=== PATIENT | male | born 1965 | race Caucasian/White ===

== ENCOUNTER → 2017-01-17 | Outpatient (CLI) | payer OTHER ==
[2017-01-17 15:40] LABS: BASO % 0.5 %; BASO ABS # 0.05 K/uL (0-0.2); COMPLETE YES; HEMATOCRIT 42.3 % (42-52); IG% 0.3 %; LYMPH % 13.6 %; LYMPH ABS # 1.27 K/uL (1.2-3.4); MEAN CORPUSCULAR HEMOGLOBIN 30.7 pg (25-34); MEAN CORPUSCULAR HGB CONC 33.3 g/dl (32-36); MEAN PLATELET VOLUME 9.3 fL (7.4-10.4); MONO % 8.9 %; NEUT % 74.7 %; PLATELET COUNT 201 K/uL (130-400); WHITE BLOOD COUNT 9.31 K/uL (4.8-10.8)
[2017-01-17 15:45] LABS: MANUAL MICROSCOPIC REQUIRED? NO; REVIEW REQ? NO; URINE APPEARANCE CLEAR (CLEAR); URINE COLOR DK YELLOW; URINE EPITHELIAL CELL AUTO >30 /lpf (0-5); URINE NITRITE NEG (NEG); URINE SPECIFIC GRAVITY 1.029 (1.000-1.030); UROBILINOGEN NEG (NEG); ZZUR CULT IF INDIC CLEAN CATCH NO
[2017-01-17 15:47] LABS: SULFASALICYLIC ACID NEG (NEG); URINE BILIRUBIN NEG (NEG)
[2017-01-17 15:56] LABS: BLOOD UREA NITROGEN 14 mg/dl (7-18); BUN/CREATININE RATIO 9.2 (10-20); CALCIUM 8.8 mg/dl (8.5-10.1); CARBON DIOXIDE 33 mmol/L (21-32); CHLORIDE 98 mmol/L (98-107); GLUCOSE 93 mg/dl (70-99); MAGNESIUM 2.4 mg/dl (1.8-2.4); POTASSIUM 3.8 mmol/L (3.5-5.1); SODIUM 138 mmol/L (136-145)
[2017-01-17 16:07] LABS: ALKALINE PHOSPHATASE 92 U/L (45-117); ALT/SGPT 23 U/L (12-78); AST/SGOT 26 U/L (15-37); PHOSPHORUS 2.6 mg/dl (2.5-4.9)
[2017-01-17 16:17] LABS: URINE PROTIEN/CREAT RATIO 0.1 (0-0.2); URINE TOTAL PROTEIN 35.1 mg/dl (0-11.9)
[2017-01-19 16:29] LABS: ALBUMIN 3.6 G/DL (3.8-4.8); GAMMA GLOBULIN 1.2 G/DL (0.8-1.7); TOTAL PROTEIN 7.2 G/DL (6.2-8.3)
== END | disposition home or self-care (01) ==
LOC: C.LAB1850 14:28
PROVIDERS: ATTEND Internal Medicine Nephrology
DX: N28.9 Disorder of kidney and ureter, unspecified (principal); E55.9 Vitamin D deficiency, unspecified; G47.33 Obstructive sleep apnea (adult) (pediatric)

== ENCOUNTER → 2017-03-29 | Outpatient (CLI) | payer OTHER ==
[2017-03-29 17:30] LABS: BLOOD UREA NITROGEN 10 mg/dl (7-18); BUN/CREATININE RATIO 7.7 (10-20); CALCIUM 8.9 mg/dl (8.5-10.1); CARBON DIOXIDE 31 mmol/L (21-32); CHLORIDE 104 mmol/L (98-107); GLUCOSE 81 mg/dl (70-99); MAGNESIUM 2.2 mg/dl (1.8-2.4); PHOSPHORUS 2.1 mg/dl (2.5-4.9); SODIUM 140 mmol/L (136-145)
== END | disposition home or self-care (01) ==
LOC: C.LAB1850 15:15
PROVIDERS: ATTEND Internal Medicine Nephrology
DX: N28.9 Disorder of kidney and ureter, unspecified (principal)

== ENCOUNTER 2024-01-26 08:57 | Observation (INO) ==
--- NOTE | 2023-12-21 10:29 | PAT Medication Instructions ---
Medication Instructions Date of Service December 21, 2023 Home Medications Medication Instructions Recorded fluticasone propionate 110 1 puff inhalation BID #12 grams 04/06/21 mcg/actuation HFA aerosol inhaler (Flovent HFA) albuterol sulfate 90 mcg/actuation 2 puff inhalation Q6H PRN 10/07/21 aerosol inhaler shortness of breath or wheezing #8.5 grams montelukast 10 mg tablet 10 mg PO QPM #90 tabs 06/26/23 (Singulair) fluticasone propionate 110 mcg/actuation HFA aerosol inhaler (Flovent HFA) 1 puff inhalation BID albuterol sulfate 90 mcg/actuation aerosol inhaler 2 puff inhalation Q6H PRN shortness of breath or wheezing acetaminophen 650 mg tablet,extended release (Tylenol Arthritis Pain) 1,300 mg PO Q8H PRN Pain mecobalamin (vitamin B12) 500 mcg chewable tablet 500 mcg PO QAM montelukast 10 mg tablet (Singulair) 10 mg PO QPM allopurinol 100 mg tablet 200 mg PO QAM duloxetine 60 mg capsule,delayed release 60 mg PO QAM lisinopril 10 mg tablet 10 mg PO QAM omeprazole 20 mg capsule,delayed release 20 mg PO QPM prednisone 1 mg tablet 6 mg PO QAM tamsulosin 0.4 mg capsule 0.4 mg PO QAM DO NOT take the morning of surgery mecobalamin (vitamin B12) 500 mcg chewable tablet 500 mcg PO QAM lisinopril 10 mg tablet 10 mg PO QAM Take morning of surgery With a small sip of water, OTHERWISE NOTHING TO EAT OR DRINK AFTER MIDNIGHT: fluticasone propionate 110 mcg/actuation HFA aerosol inhaler (Flovent HFA) 1 puff inhalation BID albuterol sulfate 90 mcg/actuation aerosol inhaler 2 puff inhalation Q6H PRN shortness of breath or wheezing (use if needed; please bring rescue inhaler with you to hospital day of surgery if possible) acetaminophen 650 mg tablet,extended release (Tylenol Arthritis Pain) 1,300 mg PO Q8H PRN Pain (if needed) allopurinol 100 mg tablet 200 mg PO QAM duloxetine 60 mg capsule,delayed release 60 mg PO QAM prednisone 1 mg tablet 6 mg PO QAM tamsulosin 0.4 mg capsule 0.4 mg PO QAM Take evening before surgery fluticasone propionate 110 mcg/actuation HFA aerosol inhaler (Flovent HFA) 1 puff inhalation BID albuterol sulfate 90 mcg/actuation aerosol inhaler 2 puff inhalation Q6H PRN shortness of breath or wheezing (if needed) acetaminophen 650 mg tablet,extended release (Tylenol Arthritis Pain) 1,300 mg PO Q8H PRN Pain (if needed) montelukast 10 mg tablet (Singulair) 10 mg PO QPM omeprazole 20 mg capsule,delayed release 20 mg PO QPM Other Notes If you have any questions please call us at [phone] or [phone] or [phone] or [phone]
--- NOTE | 2024-01-09 13:07 | Anesthesiology Consultation ---
Date of Service January 09, 2024 Assessment & Plan (1) Encounter for pre-operative examination: Plan Addendum 01/06/24: Patient seen by cardiology 01/17/2024 = seen for preoperative cardiovascular examination. Patient with history of LVH and hypertension. "He underwent a cardiac catheterization a year ago that demonstrated normal coronary arteries. Echocardiogram performed last year showed low normal LVEF and no significant valvular pathology. He denies chest pain. He has chronic shortness of breath with exertion which appears stable. He has no evidence of CHF. He is therefore at an acceptable risk to proceed with upcoming surgery without any additional cardiovascular testing or intervention." Patient seen by PCP 01/11/24= patient seen for chronic medical follow up and preoperative encounter. LVHhas appointment with cardiology in near future for preop clearance. Hypertensionwell-controlled. Goutno recent flares. Apneic episodespatient declined sleep study. GERDcontinue omeprazole and avoid food triggers. PMRon chronic prednisone. Follow-up with rheumatology as needed. BPHdoing well. Asthmastable. Preop examinationrevised EKG was unremarkable. CXR showed no active disease. Labs reviewed and were unremarkable with exception to mild anemia. Will check iron studies and fit test to evaluate anemia. Will not hold up surgery at this time due to very mild anemia. "Based on patients past medical history, functional capacity 4 METs, and RCRI 0, patient is medically optimized for surgery from PCP standpoint. Has upcoming cardiology preoperative appt. Pt will not need any additional work up. " - SHERRELL DWYER 01/17/24 7629 Chart Review Chart Review: Acceptable Risk for Surgery (pending PCP (01/11/24) and cardio (01/17/24) clearance ) and Patient seen in Pre Admission Testing - Awaiting PCP clearance 01/11/24 ([place]) (stil in draft) - Patient scheduled with [facility] cardio for clearance appt 01/17/24 at 945am- patient aware of appt - Patient is NOT an OPJ candidate (currently 23 hour obs) Per PAT appt on 01/09/24, no recent illness/disease exposures, illness related symptoms, or recent illness/disease positive tests. Will leave to surgeon's discretion if preop Covid testing needed Consults Requested cardiac Teaching & Discussion Pre-Anesthesia Teaching/Discussion Notes: Instructed NPO after midnight before surgery,except medications with 15 cc of water. Medication instructions provided according to the PAT guidelines. History Surgery Operation Date: 01/26/24 07:00 Proposed Procedures p Left Total Knee Arthroplasty - Fritz iL MD Height/Weight Height: 5 ft 10 in Weight: 171.6 kg Allergies Allergy/AdvReac Type Severity Reaction Status Date / Time ibuprofen Allergy Mild Hives Verified 01/17/24 09:51 Medications Home Medications Medication Instructions Recorded Confirmed Last Taken fluticasone propionate 110 1 puff inhalation BID #12 grams 04/06/21 01/17/24 Unknown mcg/actuation HFA aerosol inhaler (Flovent HFA) albuterol sulfate 90 mcg/actuation 2 puff inhalation Q6H PRN 10/07/21 01/17/24 Unknown aerosol inhaler shortness of breath or wheezing #8.5 grams acetaminophen 650 mg 1,300 mg PO Q8H PRN Pain 12/27/22 01/17/24 Unknown tablet,extended release (Tylenol Arthritis Pain) mecobalamin (vitamin B12) 500 mcg 500 mcg PO QAM 12/27/22 01/17/24 Unknown chewable tablet montelukast 10 mg tablet 10 mg PO QPM #90 tabs 06/26/23 01/17/24 Unknown (Singulair) allopurinol 100 mg tablet 200 mg PO QAM 12/19/23 01/17/24 Unknown duloxetine 60 mg capsule,delayed 60 mg PO QAM 12/19/23 01/17/24 Unknown release lisinopril 10 mg tablet 10 mg PO QAM 12/19/23 01/17/24 Unknown omeprazole 20 mg capsule,delayed 20 mg PO QPM 12/19/23 01/17/24 Unknown release tamsulosin 0.4 mg capsule 0.4 mg PO QAM 12/19/23 01/17/24 Unknown prednisone 1 mg tablet 6 mg (6 x 1 mg) PO QAM #180 tabs 12/22/23 01/17/24 Unknown Wheeled Walker #1 ea 01/16/24 01/17/24 Unknown Past Medical History Medical History (Updated 01/17/24 @ 11:09 by Chelo Pierre PA-C) Arthritis Bilateral knees, daily pain/chronic steroid use Follows with Dr. Priest, Rheum Asthma stable and controlled BPH (benign prostatic hyperplasia) GERD (gastroesophageal reflux disease) well controlled and stable Hx of gout No flares for 6+ months Hypertension Left ventricular hypertrophy Stress echo 12/2022: Severe LVH PMR (polymyalgia rheumatica) On chronic prednisone; follows with rheum PRN Sleep apnea No device Exercise / Class Metabolic Activity III < 4 Walking/Shop/Light housework (no chest pain, mild SOB with short distance, flat surface ambulation - increased knee pain - rare cane use ) Past Family History Family History Mother Heart disease Past Surgical History Surgical History Hx of cardiac catheterization R/L cardiac cath: 01/2023 (Positive stress test)- Normal to low right heart cath measurements. (I lack confidence in the measurements obtained). Recommend patient have sleep study. No stents. "Normal coronary arteries" Hx of right inguinal hernia repair (1979) Hx of umbilical hernia repair (1997) Past Anesthesia History No Hx of Anesthesia Complications and No Family Hx of Anesthesia Complications History of PONV No Hx of PONV and No Hx of Motion Sickness Social History Smoking Status: Never smoker Do You Dip or Chew Tobacco: No Hx Alcohol Use: No Hx Substance Use: Yes substance use type: marijuana Last Used Substance Other:: Daily Marijuana use Review of Systems Patient denies chest pain, shortness of breath at rest, cough, wheezing, palpitations. No hx of seizures, stroke, AL. No hx of blood clots or blood transfusions Physical Exam Vital Signs VITALS BP 125/81 P 87 TEMP 98.3 SP02 95% RESP Constitutional no acute distress ENMT Mouth: no TMJ clicking Thyromental Distance: > or= 3.5 Finger Breadths (3.5) Mallampati Class: II Neck + short neck and + thick neck; neck extension not limited Respiratory normal respiratory effort; no respiratory distress Auscultation: lungs clear to auscultation bilaterally; no wheezes Cardiovascular Rate/Rhythm: regular rate and regular rhythm Heart Sounds: no murmur Vessels: no carotid bruit Musculoskeletal Spine: no pain with cervical ROM Extremities: extremities normal to inspection Psychiatric Orientation: alert Lab Results Anesthesia Preop Results Results Anesthesia Widget: WBC 9.50 K/ul (4.8-10.8) 01/09/24 Hgb 12.5 g/dl (14.0-18.0) L 01/09/24 Hct 39.3 % (42.0-52.0) L 01/09/24 Plt 195 K/uL (130-400) 01/09/24 Na 138 mmol/L (136-145) 01/09/24 K 3.8 mmol/L (3.5-5.1) 01/09/24 Cl 103 mmol/L (98-107) 01/09/24 CO2 30 mmol/L (21-32) 01/09/24 BUN 12 mg/dl (6-23) 01/09/24 Creat 1.56 mg/dl (0.6-1.4) H 01/09/24 Glucose Level 83 mg/dl (70-99(Fasting)) 01/09/24 PT 10.8 Seconds (9.0-12.0) 01/09/24 PTT 26 Seconds (21-31) 01/09/24 INR 1.0 (0.9-1.1) 01/09/24 HA1c 5.3 % (4.5-5.6) 01/09/24 Urine Color Yellow 01/11/24 Urine Appearance Clear (Clear) 01/11/24 Urine pH 6.5 (4.5-7.5) 01/11/24 Urine Specific [place] 1.017 (1.000-1.030) 01/11/24 Urine Protein Negative (Negative) 01/11/24 Urine Glucose (UA) Negative (Negative) 01/11/24 Urine Ketones Trace (Negative) H 01/11/24 Urine Blood Negative (Negative) 01/11/24 Urine Nitrite Negative (Negative) 01/11/24 Urine Bilirubin Negative (Negative) 01/11/24 Urine Urobilinogen Negative (Negative) 01/11/24 Urine Leukocyte Esterase Negative (Negative) 01/11/24 Blood Type O Positive 01/09/24 Antibody Screen NEGATIVE 01/09/24 Testing Laboratory Results Elevated creatine - chronic and stable since 2020 Electrocardiogram Date: 01/09/24 Findings: + NSR @ (84bpm ) Normal EKG per cardio Chest X-Ray Date: 01/09/24 Findings: + NAD Echocardiogram Date: 08/21/18 EF: 67% Other Findings: + LVH (Moderate/concentric) Valvular Disease: + no significant valvular disease LV cavity size is normal No left ventricular mural thrombus Stress Test Date: 12/06/22 Type: DSE Nondiagnostic stress echo Resting echo was poor quality but suggest low normal EF, severe LVH and no significant valvular pathology Stress echo images are inadequate for evaluation of segmental wall motion despite use of contrast for visualization of endocardium. Does appear to be general improvement in LV function with dobutamine infusion which would be considered an appropriate/normal response Dobutamine induced ST segment changes are nondiagnostic for ischemia Consider Lexiscan stress myocardial imaging to evaluate for ischemia as clinically indicated Cardiac Catheterization Date: 01/19/23 Coronary angiography findings: LMT: Large-caliber vessel bifurcating into LAD and circumflex. No angiographically evident disease. LAD: Large caliber and transapical. Provides a large branching diagonal. There is no angiographically evident disease in the LAD or its branches. LCx: Large caliber and probably nondominant. Provides a medium caliber OM 1 and a large caliber OM 2. It terminates distally and a large caliber posterior lateral branch. There is no angiographically evident disease in the circumflex or its branches. RCA: Large caliber vessel which is likely dominant. Provides a PDA. There is no angiographically evident disease in the RCA or its branches. LVEF: 55% Summary: 1. Normal coronary arteries. 2. Normal LVEF. 3. Normal to low right heart cath measurements. (I lack confidence in the measurements obtained). Recommend patient have sleep study.
--- NOTE | 2024-01-20 11:47 | History & Physical Report ---
Date of Service January 20, 2024 Assessment & Plan (1) Bilateral primary osteoarthritis of knee: 58-year-old male with morbid obesity with advanced bilateral knee DJD. He is got severe extensive disease. He has attempted weight loss with some degree of success. I still a large gentleman. He would like to proceed with surgical treatment. A very minimal response to further conservative care based on the severity of disease. Plan: We discussed treatment options with the patient today. He developed proceed with surgical intervention. We talked about the wrist with his increased size of operatively thrombosis, DVT, and infection. He is fully aware. He cannot mobilize and live life like he is doing currently. These will and and wants to take the risk to hopefully improve his mobility and his pain. We will likely put a stem in his tibia. Will put some antibiotics in the cement to make infection less likely. He is planning to be discharged to home using the [facility]. His sed rate and CRP are slightly elevated probably related to his PMR. There is no local signs of infection. Will plan on DVT prophylaxis including thigh-high teds, SCDs, aspirin twice a day. (2) Obesity: (3) PMR (polymyalgia rheumatica): History of Present Illness Chief Complaint: . Bilateral knee pain and discomfort left side greater than the right. Primary Care Provider: Nanda Manzo DO . Patient is a 58-year-old morbidly obese gentleman from [place] who presents for surgical management of his knees. He is got a 15-year history of increasing bilateral knee pain discomfort described to gotten worse over time. Does a history of a knee arthroscopy on the left side [address] Michelle. The pain is gradually gotten worse. His walking tolerance is only about 20 yards. He has difficulty even going to the bathroom. Bennett describes global pain. He limps. He has had injections which do not really help at all. He would like to proceed with surgical management. Of note, patient has attempted weight loss in the past on multiple occasions with the limited success. He does say that he previously weighed 450 pounds and is now down to about 375. Allergies Allergy/AdvReac Type Severity Reaction Status Date / Time ibuprofen Allergy Mild Hives Verified 01/17/24 09:51 Home Medications Medication Instructions Recorded Confirmed Type fluticasone propionate 110 1 puff inhalation BID #12 grams 04/06/21 01/17/24 Rx mcg/actuation HFA aerosol inhaler (Flovent HFA) albuterol sulfate 90 mcg/actuation 2 puff inhalation Q6H PRN 10/07/21 01/17/24 Rx aerosol inhaler shortness of breath or wheezing #8.5 grams acetaminophen 650 mg 1,300 mg PO Q8H PRN Pain 12/27/22 01/17/24 History tablet,extended release (Tylenol Arthritis Pain) mecobalamin (vitamin B12) 500 mcg 500 mcg PO QAM 12/27/22 01/17/24 History chewable tablet montelukast 10 mg tablet 10 mg PO QPM #90 tabs 06/26/23 01/17/24 Rx (Singulair) allopurinol 100 mg tablet 200 mg PO QAM 12/19/23 01/17/24 History duloxetine 60 mg capsule,delayed 60 mg PO QAM 12/19/23 01/17/24 History release lisinopril 10 mg tablet 10 mg PO QAM 12/19/23 01/17/24 History omeprazole 20 mg capsule,delayed 20 mg PO QPM 12/19/23 01/17/24 History release tamsulosin 0.4 mg capsule 0.4 mg PO QAM 12/19/23 01/17/24 History prednisone 1 mg tablet 6 mg (6 x 1 mg) PO QAM #180 tabs 12/22/23 01/17/24 Rx Wheeled Walker #1 ea 01/16/24 01/17/24 Rx Past Med/Surg History Problem List (Updated 01/20/24 @ 11:45 by Fritz Li MD) PMR (polymyalgia rheumatica) On chronic prednisone; follows with rheum PRN Obesity Bilateral primary osteoarthritis of knee Encounter for pre-operative examination Anxiety HTN (hypertension) Medical History Left ventricular hypertrophy Stress echo 12/2022: Severe LVH Sleep apnea No device PMR (polymyalgia rheumatica) On chronic prednisone; follows with rheum PRN BPH (benign prostatic hyperplasia) Asthma stable and controlled GERD (gastroesophageal reflux disease) well controlled and stable Hx of gout No flares for 6+ months Arthritis Bilateral knees, daily pain/chronic steroid use Follows with Dr. Priest, Rheum Hypertension Surgical History Hx of cardiac catheterization R/L cardiac cath: 01/2023 (Positive stress test)- Normal to low right heart cath measurements. (I lack confidence in the measurements obtained). Recommend patient have sleep study. No stents. "Normal coronary arteries" Hx of right inguinal hernia repair (1979) Hx of umbilical hernia repair (1997) Family History Mother Heart disease Social History Smoking Status: Never smoker Second Hand Exposure: No; Do You Dip or Chew Tobacco: No; Tobacco Cessation Education Requested by Patient: No Hx Alcohol Use: No Hx Substance Use: Yes Last Used Substance Other:: Daily Marijuana use Preferred Language: Portuguese Communication Ability: Effective Visual Impairment: No Limitations Hearing Ability: Normal Police Aide Required: No Beliefs That Will Affect Care: None marital status: Current Living Situation: Spouse current occupational status: unemployed How many Children do You have: 3 Other Information That Helps Us Care for You: No Feels Safe at Home: Yes Safety Concerns: Feels Safe At This Time Diet: regular caffeine: Yes Dental Care, Regularly: No Physical Activity Frequency: Does not Exercise Seatbelt Use: always Sunscreen Use: No Do you think of yourself as: don't know Sexual Activity: has been sexually active, but not for at least 12 months Gender Identity: Male Assistive Devices: Cane and Glasses Assistive Devices Comment: readers Review of Systems All systems reviewed & are unremarkable except as noted in HPI & below. Physical Exam . Physical examination reveals an obese middle-age male. Examination by both knees roll a patient who ambulates with a waddling antalgic gait. He has difficulty even ambulating in the room. Examination of the left knee reveals marked varus deformity which is increased with weightbearing. He is got a moderate to large soft tissue envelope. He is got some healed scabs on his leg. No active signs of infection. Got bony hypertrophy throughout. His range of motion about 10 degrees show full extension to 90 degrees of flexion. No particular pain with hip motion. Examination the right knee reveals similar varus deformity. Is got some healed skin lesions. No signs of open infections. Range of motion is 10-95. No instability. Constitutional WD/WN, vitals as above Neck trachea midline, no thyromegaly Respiratory normal respiratory effort, lungs clear to auscultation Cardiovascular RRR, no murmur, no edema Gastrointestinal (Abdomen) normal bowel sounds, soft, nontender, no hepatosplenomegaly Results & Data Results & Data Laboratory Results . Diagnostic Findings . X-rays of both knees were reviewed. Shows advanced bilateral knee DJD. Is got complete loss of medial joint space with bony destruction of his medial tibial plateau on both knees. Got a little bit tibiofemoral subluxation as well. Left knee is a bit worse than the right. PG Care Time/CCT Total # of Minutes Spent Total Time Spent with Patient: Total time spent is greater than 50% in coordination of care (as documented) at patient's floor/unit and/or counseling patient: Coding Level of Care Code None Diagnoses Bilateral primary osteoarthritis of knee M17.0 Obesity E66.9 PMR (polymyalgia rheumatica) M35.3
[~2024-01-26 08:57] MED LIST: ROPIVACAINE 0.5% 5 MG/ML 30 ML VIAL ONE
[2024-01-26] MEDS ORDERED: PROPOFOL IV EMULSION 10 MG/ML 20 ML VIAL IV ONE ×10 (09:22→12:46)
[2024-01-26] MEDS ORDERED: fentaNYL citrate PF 100 MCG/2 ML VIAL ONE (09:23)
[2024-01-26] MEDS ORDERED: MIDAZOLAM HCL 1 MG/ML 2ML VIAL ONE ×3 (09:23→11:43)
[2024-01-26] MEDS ORDERED: ONDANSETRON INJ 2 MG/ML 2 ML VIAL IV PRN ×2 (10:01→14:27)
[2024-01-26] MEDS ORDERED: ATROPINE SULFATE 0.1 MG/ML 10ML SYR IV PRN (10:01)
[2024-01-26] MEDS ORDERED: HYDROmorphone INJ 1 MG/ML SYRINGE IV PRN (10:01)
[2024-01-26] MEDS ORDERED: ePHEDrine sulfate 50 MG/ML AMP IV PRN (10:01)
[2024-01-26] MEDS: CeleBREX 200 MG CAP PO SCH (10:03)
[2024-01-26] MEDS: FAMOTIDINE 20 MG TAB PO SCH (10:04)
[2024-01-26] MEDS: ACETAMINOPHEN 500 MG TAB PO SCH ×2 (10:04→15:31)
[2024-01-26] MEDS: METOCLOPRAMIDE HCL 10 MG TABLET PO SCH (10:04)
[2024-01-26] MEDS: Scopolamine 1 MG TDSY TD SCH (10:07)
[2024-01-26] MEDS: dexAMETHasone**PF** 10 MG/ML VIAL IV SCH (10:16)
[2024-01-26] MEDS: LR 500ML BOLUS, THEN 15ML/HR IV SCH (10:19)
[2024-01-26] MEDS: LR 60ML/HR IV SCH (10:20)
--- NOTE | 2024-01-26 10:36 | History & Physical Bridge Note ---
Date of Service January 26, 2024 History & Physical Bridge Note I have examined the patient, reviewed the History & Physical and in the interval since the performance of the History & Physical I have noted the following changes of clinical significance: no changes noted. We discussed tx and plan to do Left TOtal Knee Arthroplasty.
[2024-01-26] MEDS: ceFAZolin 3000MG 3,000 MG/72.5 ML BAG IV SCH (10:59)
[2024-01-26] MEDS ORDERED: KETAMINE HCL 10MG/ML SYR ONE (11:10)
[2024-01-26] MEDS ORDERED: GLYCOPYRROLATE 0.2 MG/ML VIAL ONE (11:11)
[2024-01-26] MEDS ORDERED: ONDANSETRON INJ 2 MG/ML 2 ML VIAL ONE (11:11)
[2024-01-26] MEDS: ORTHO JOINT ANESTHETIC ONE (11:34)
[2024-01-26] MEDS: VANCOMYCIN HCL 1000MG/20ML VIAL ONE (11:34)
[2024-01-26] MEDS: ROPIV 0.5% 246mg, Ketorolac 30mg, EPINEPHrine 0.5mg in NSS INFIL SCH (11:34)
[2024-01-26] MEDS ORDERED: LABETALOL HCL IV 5 MG/ML 20ML IV ONE (12:31)
[2024-01-26] MEDS: TRANEXAMIC ACID 1,000 MG **IV Intra-op IV SCH (12:32)
--- NOTE | 2024-01-26 13:29 | Operative Report ---
PG Post Operative Report Pre & Post Diagnosis Operation Date: 01/26/24 10:40 Pre-Op Diagnosis: Degenerative Joint Disease Knee Left Post-Op Diagnosis: Degenerative Joint Disease Knee Left I identified the patient and participated in the time-out.: Yes Procedure Operation Date: 01/26/24 10:40 Actual Procedures p Left Total Knee Arthroplasty(Left) - Fritz Li MD Surgeon Fritz Li MD Bearing Inspector Ez Bazzi PA-C Estimated Blood Loss 200 Findings Consistent with Post-Op Diagnosis Operative findings of advanced left knee DJD. He had extensive grade 4 [id number] disease of the medial side of his knee with collapse of the medial tibial plateau. He has a chronic ACL deficiency. Large soft tissue envelope. Specimens Left knee sent for pathology Anesthesia Type Spinal MAC Complications none Disposition Accompanied Patient To Recovery: No Indications Patient is a 58-year-old morbidly obese gentleman whose had a long history of bilateral knee pain and discomfort is gotten worse over the past 15 to 20 years. He has been through extensive conservative treatment which really did not work at all. Is come become markedly debilitated by his knees and can hardly walk a block. He elected with surgical treatment. He has tried multiple remedies including weight loss and nonoperative management. He was medically optimized and elected to proceed with surgical treatment. Description of Procedure Operative implants consist of: 1 Biomet Vanguard size 70 left posterior stabilized femoral component. 2. Biomet size 79 tibial tray with a 80 mm x 17 mm stem and a 5.0 mm augment and small cruciate wing. 3. 16 mm posterior stabilized polyethylene insert. 4. 34 x 8 and half all poly patella. The patient was taken to the operating, identified, placed on the operating table in the supine position but all contractors were appropriately padded. IV antibiotics tried by anesthesia team. A spinal anesthetic and adductor canal block had provided in the holding area. Left thigh tourniquet was then placed. Left lower extremities then prepped and draped in usual sterile fashion. The left leg was elevated exsanguinated with use of an Esmarch and the tourniquet was placed at 350 mmHg. An anterior approach the left knee was then performed through a longitudinal incision centered over the patella. Sharp dissection was carried through subcutaneous tissue down the extensor mechanism. A medial parapatellar arthrotomy incision was made. Some subperiosteal dissection was carried out medially. The fat pad was dissected from Neath massey la tendon. Lateral patellofemoral ligament was released. Patella subluxated laterally and the knee was flexed. The ACL was absent. The PCL was released from the distal femur and the tibia subluxated anteriorly. The tibial eminence was then resected. I then sequentially reamed the IM canal wall up to a size 17. This was left in place and the jus was then used to do an intramedullary cut removing about a millimeter bone from the medial side and essentially flush with the most deficient aspect of the posterior medial tibial plateau. The tibia sized to a size 79. Some osteophytes taken off posteriorly. The tibia was then prepared for the stem with a 5.0 mm offset and a small cruciate wing. The tibial tray was assembled and placed and fit nicely. Attention drawn the femur. The distal femur Zaro the sharp drill. Intramedullary canal was suction. A left 6 degree valgus cutting guide was placed. This femoral cutting block was pinned in place. Distal femoral cut was made take an additional 3 mm of bone off distal femur. The femur was then sized to a size 70. The AP cutting block was pinned parallel to the epicondylar axis which was 5 degrees of external rotation. The anterior cut, anterior chamfer, posterior cut, posterior chamfer cuts were made. The box cutting guide was placed in the just slight lateral box cut was made. The knee was flexed. The medial and lateral menisci and the osteophytes taken off the posterior aspect the femur. Trial femoral component was placed. We then trialed the knee and the 16mm insert fit most appropriately. He still did have some lateral laxity in extension but I really did not want to use a posterior stabilized implant in this large gentleman. I thought we had enough stability we would not need that. Attention drawn the patella. The patella was cleaned of all soft tissue. Patella thickness measured about 28 mm in thickness was cut down to about 15. Was sized to a size 34 patella. The locals were drilled for 34 patella. The lateral osteophyte was removed. Patella button was placed. Knee was taken through range of motion patella tracked nicely with no thumbs test. Attention drawn to placing permanent compo nents. Nupathe all trial components were removed. Bone plug was placed in the distal femur limit blood loss. A double batch Palacos G cement was mixed. I did add an additional gram of vancomycin due to his morbid obesity and his history of multiple scabs on his extremities. A Biomet Vanguard size 70 left Po stabilized femoral component, size 79 tibial tray with a 17 x 80 mm offset stem with a 5 mm offset and small cruciate wing, a 16 mm PS insert, and a 34 x 8 and half all poly patella then cemented in place. Knee was brought out into full extension till cement hardened. Final cement check was then performed. The pericapsular tissues were injected with a total of 100 cc of Ortho mix. Patient did receive 1 g tranexamic acid. The tourniquet was then let down for final tourniquet time of 80 minutes. Hemostasis assured use electrocautery. Extensor Meclomen closed with combination 1 PDS suture #1 Vicryl suture in a [id number] fashion. Extensor Meclomen checked found to be intact and subcutaneous tissues then closed with 2-0 Dexon suture in buried interrupted fashion the skin was closed skin karla. Leg was then cleaned and dried and a sterile dressing with Xeroform, 4 fours, sterile cast padding, Ravindra bandage were applied. The patient then transferred to the recovery room in stable condition. Patient tolerated procedure well and there were no complications. This patient is morbidly obese with a BMI of 54.3. Due to the size that she made this surgery extremely difficult and more challenging and required about 50% more time than usual. Ez Bazzi, my physician rehab assistant, was present for the entire procedure. His assistance was essential and required for appropriate patient positioning, prepping and draping, surgical exposure, performing the technical details of the operation, placement the implants, closure of the wound, and placement of the sterile bandage. I attest to the content of the Intraoperative Record and any orders documented therein. Any exceptions are noted below.
--- NOTE | 2024-01-26 13:46 | XRay Report ---
TWO VIEWS LEFT KNEE CLINICAL HISTORY: Postoperative examination. FINDINGS: AP and crosstable lateral portable views of the left knee are obtained. A left knee arthrop lasty is in near anatomic alignment. There has been undersurface remodeling of the patella. There is a long tibial stem. No acute fracture is seen. There are expected postoperative changes around the kn ee including skin clips, soft tissue edema, and subcutaneous gas. IMPRESSION: Expected postoperative changes status post left knee arthroplasty. No acute fracture is s een. ACT 112: Negative or not required by law. Electronically signed by: Brad Perez M.D. 01/26/2024 1:45 PM
--- NOTE | 2024-01-26 14:01 | Anesthesiology Progress Note ---
Date of Service January 26, 2024 Anesthesia Post Procedure Vital Signs Vital Signs: Temp Pulse Pulse Resp BP Pulse Ox O2 Del Method 01/26/24 13:55 36.4 C L 89 18 134/84 97 Room Air 01/26/24 13:45 87 21 118/73 96 Room Air 01/26/24 13:35 85 15 122/95 100 Oxymask 01/26/24 13:25 81 13 134/94 97 Oxymask 01/26/24 13:18 36.1 C L 89 19 137/88 95 Oxymask 01/26/24 09:41 36.7 C 96 H 22 132/92 97 Room Air O2 Flow Rate 01/26/24 13:55 0 01/26/24 13:45 0 01/26/24 13:35 8 01/26/24 13:25 8 01/26/24 13:18 8 01/26/24 09:41 Pain Intensity Bilateral Knee: Pain Intensity: 4 Left Knee: Pain Intensity: 4 Transfer of Care Handoff Completed per policy Notes Mental Status: alert / awake / arousable Patient Amnestic to Procedure: Yes Nausea / Vomiting: adequately controlled Pain: adequately controlled Airway Patency, RR, SpO2: stable & adequate BP & HR: stable & adequate Hydration State: stable & adequate Neuraxial Anesthesia: was administered and sensory block is resolving Anesthetic Complications: no major complications apparent
[2024-01-26] MEDS ORDERED: HYDROmorphone INJ 0.5 MG/0.5 ML SYR IV PRN (14:27)
[2024-01-26] MEDS ORDERED: NO NSAIDS SCH (14:27)
[2024-01-26] MEDS ORDERED: MAGNESIUM HYDROXIDE SUSP 30 ML UDC PO PRN (14:27)
[2024-01-26] MEDS ORDERED: NALOXONE HCL 0.4 MG/1 ML VIAL/CARP IV PRN (14:27)
[2024-01-26] MEDS ORDERED: METOCLOPRAMIDE HCL INJ 5 MG/ML 2 ML VIAL IV PRN (14:27)
[2024-01-26] MEDS ORDERED: ALBUTEROL HFA 8 GM INHALER INH PRN (14:27)
[2024-01-26] MEDS ORDERED: bisacodyL 10 MG SUPP PR PRN (14:27)
[2024-01-26] MEDS ORDERED: ALUMINUM/MAGNESIUM SUSP 30 ML UDC PO PRN (14:27)
[2024-01-26] MEDS: SODIUM CHLORIDE 0.9% 1,000 ML IV SCH (15:31)
[2024-01-26] MEDS: Scopolamine CHECK PATCH PLACEMENT SCH (15:32)
[2024-01-26] MEDS: ASCORBIC ACID 500 MG TAB PO SCH (16:51)
[2024-01-26] MEDS: FLUTICASONE FUROATE 100MCG 14 PUFFS/INHALER INH SCH (16:51)
[2024-01-26] MEDS: ceFAZolin 2000MG 2,000 MG/15 ML SYR IV SCH (19:57)
[2024-01-26] MEDS: TRANEXAMIC ACID / 0.7% NACL 1,000 MG/100 ML BAG IV SCH (20:01)
[2024-01-26] MEDS: MONTELUKAST SODIUM 10 MG TABLET PO SCH (20:19)
[2024-01-26] MEDS: PANTOprazole 40 MG TAB PO SCH (20:19)
[2024-01-26] MEDS: ASPIRIN 81 MG ECTAB PO SCH (20:20)
[2024-01-26] MEDS: DOCUSATE SODIUM 100 MG CAP PO SCH (20:20)
[2024-01-26] MEDS: SENNA 8.6 MG TAB PO SCH (20:20)
[2024-01-26] MEDS ORDERED: SENNA 8.6 MG TAB PO SCH (21:00)
[2024-01-27 06:30] LABS: Hematocrit (blood only) 34.5 % (42.0-52.0); Mean Corpuscular Hemoglobin 28.1 pg (25.0-34.0); Mean Corpuscular Hgb Conc 31.9 g/dL (32.0-36.0); Mean Corpuscular Volume 88.2 fL (80.0-100.0); Mean Platelet Volume 9.9 fL (9.4-12.4); Platelet Count 196 K/uL (130-400); RDW Coefficient of Variation 13.5 % (11.5-14.5); RDW Standard Deviation 43.8 fL (36.4-46.3); Red Blood Count 3.91 M/uL (4.70-6.10); White Blood Count 18.09 K/ul (4.8-10.8)
[2024-01-27 06:44] LABS: BUN Creatinine Ratio 12.3 (10-20); Calcium 8.4 mg/dl (8.6-10.3); Creatinine Clr Calc Pharmacy 80.1 ml/min; Est GFR (African American) 53.8 ml/min; Est GFR (Non-African American) 46.4 ml/min; Potassium 4.5 mmol/L (3.5-5.1)
--- NOTE | 2024-01-27 07:56 | Surgery Progress Note ---
Date of Service January 27, 2024 Assessment & Plan (1) Status post left knee replacement: Plan: 58-year-old male postop day 1 from left knee replacement doing pretty well. Pain is controlled. He is neurologically intact. Plan: 1. DVT prophylaxis including thigh-high teds, SCDs, aspirin twice a day for 6 weeks. 2. PT/OT. Weight-bear as tolerated. Left total knee protocol. 3. Pain control doing well with current pain regimen. 4. Disposition plan to discharge home with some home health if he does okay in therapy today. Admission and Anticipated Discharge Date Admission Date: January 26, 2024 Subjective 58-year-old gentleman postop day 1 from a left knee replacement. He is doing well this morning. Really not having that much pain except when he moves his knee. No chest pain or shortness of breath. Not feeling dizzy or lightheaded. Physical Exam Physical Exam: Physical examination is a pleasant large middle-age male. He is sitting in his bedside chair. Looks pretty comfortable. Examination left leg reveals leg to be well aligned. Dressings clean dry and intact he can dorsiflex and plantarflex foot appropriate. He is neurologically intact. Respiratory: normal respiratory effort, lungs clear to auscultation Cardiovascular: RRR, no murmur, no edema Gastrointestinal (Abdomen): normal bowel sounds, soft, nontender, no hepatosplenomegaly Results & Data Vital Signs (Past 12 Hours) Vital Signs Temp Pulse Resp BP BP Pulse Ox O2 Del Method 01/27/24 06:58 37.1 C 68 18 144/84 H 97 Room Air 01/27/24 03:48 36.9 C 86 20 153/78 H 95 Room Air 01/26/24 23:24 36.8 C 78 22 149/69 H 96 Room Air 01/26/24 20:19 36.7 C 95 H 20 138/72 95 Room Air Laboratory Results Hemoglobin is 11.0. Hematocrit is 34.5. Electrolytes are stable. Creatinine is 1.62 which is about baseline. PG Care Time/CCT Total # of Minutes Spent Total Time Spent with Patient: Total time spent is greater than 50% in coordination of care (as documented) at patient's floor/unit and/or counseling patient: Coding Level of Care Code 37203 Post Operative Follow-Up Diagnoses Status post left knee replacement Z96.652
[2024-01-27] MEDS: TAMSULOSIN HCL 0.4 MG CAP PO SCH (08:21)
[2024-01-27] MEDS: allopurinoL 100 MG TAB PO SCH (08:21)
[2024-01-27] MEDS: DULoxetine HCL 60 MG CAP PO SCH (08:21)
[2024-01-27] MEDS: dexAMETHasone 10 MG in SYRINGE 0 ML IV SCH (08:21)
[2024-01-27] MEDS: MULTIVITAMIN TAB PO SCH (08:21)
[2024-01-27] MEDS: predniSONE 1 MG TAB PO SCH (08:21)
[2024-01-27] MEDS: CYANOCOBALAMIN (B-12) 500 MCG TABLET PO SCH (08:22)
[2024-01-27] MEDS: lisinopril 10 MG TAB PO SCH (08:22)
[2024-01-27] MEDS: oxyCODONE HCL IR 5 MG TAB (IMMEDIATE RELEASE) PO PRN (08:28)
[2024-01-27] MEDS ORDERED: TAMSULOSIN HCL 0.4 MG CAP PO SCH (09:00)
--- NOTE | 2024-02-05 08:04 | Discharge Summary ---
Date of Service February 05, 2024 Discharge Data Procedures Performed Operation Date: 01/26/24 10:40 Actual Procedures p Left Total Knee Arthroplasty(Left) - Fritz Li MD Hospital Course (1) Status post left knee replacement: This is a 58 year old patient admitted on 01/26/24 and underwent total knee arthroplasty. He tolerated the procedure well and there were no complications. Transferred to the PACU post op and later to the orthopedic floor for further care. He was given ancef for antibiotic prophylaxis. He was also given RENAE stockings, SCDs, and aspirin for DVT prophylaxis. Hemoglobin, hematocrit, and vital signs were monitored during his hospital stay and remained stable. Did not require any blood transfusions. There were no complications during his hospital stay. By post op day #1 the patient was tolerating a regular diet, pain was reasonably controlled with oral pain medicine, and he was participating in physical therapy. On post op day #1 the patient was discharged home and set up with home health care. He was given printed discharge instructions including prescriptions for extra strength tylenol, aspirin, cefadroxil, zofran, flomax, senokot, and oxycodone. Continue physical therapy, weight bearing as tolerated. Continue RENAE stockings. Follow up approximately 2 weeks post op or sooner if there are problems or concerns. Coding Level of Care Code None Diagnoses Status post left knee replacement Z96.652
== END 2024-01-27 11:50 | disposition home health service (06) ==
LOC: 3E 08:57 → ASU 08:57
DX: Z79.82 Long term (current) use of aspirin; M35.3 Polymyalgia rheumatica; Z79.51 Long term (current) use of inhaled steroids; M25.762 Osteophyte, left knee; J45.909 Unspecified asthma, uncomplicated; Z79.899 Other long term (current) drug therapy; M17.12 Unilateral primary osteoarthritis, left knee; Z79.52 Long term (current) use of systemic steroids; Z68.43 Body mass index [BMI] 50.0-59.9, adult; M23.8X2 Other internal derangements of left knee; Z88.6 Allergy status to analgesic agent; E66.01 Morbid (severe) obesity due to excess calories; I11.9 Hypertensive heart disease without heart failure